=== PATIENT | male | born 1955 | race Asian ===

== ENCOUNTER 2021-01-05 23:24 | Emergency (ER) | payer OTHER ==
[~2021-01-05] VITALS: Ht 177.8 cm; Wt 77.1 kg
[2021-01-05] MEDS ORDERED: LISI5TAB10 PO (23:51)
[2021-01-05] MEDS ORDERED: METFORMIN HYDR850 MG PO (23:52)
[2021-01-05] MEDS ORDERED: GLIP10TA55 PO (23:52)
[2021-01-06 00:29] LABS: PLATELET COUNT 153 K/uL (142-355)
[2021-01-06 00:37] LABS: POTASSIUM 3.6 mmol/L (3.6-5.2)
[2021-01-06 04:02] VITALS: BP 134/68; TEMP 99.9
== END 2021-01-06 03:23 | disposition short-term general hospital (02) ==
LOC: ED 23:33
PROVIDERS: Emergency Medicine Emergency Medical Services
PROC: 2W3CX1Z Immobilization of Right Lower Arm using Splint (ICD-10-PCS; principal; 2021-01-05)
PROC: 2W3MX1Z Immobilization of Left Lower Extremity using Splint (ICD-10-PCS; 2021-01-05)
DX: S02.85XA Fracture of orbit, unspecified, initial encounter for closed fracture (principal); S02.32XA Fracture of orbital floor, left side, initial encounter for closed fracture; S02.40DA Maxillary fracture, left side, initial encounter for closed fracture; S63.091A Other subluxation of right wrist and hand, initial encounter; S80.212A Abrasion, left knee, initial encounter; S50.811A Abrasion of right forearm, initial encounter; S20.412A Abrasion of left back wall of thorax, initial encounter; S20.411A Abrasion of right back wall of thorax, initial encounter; V20.4XXA Motorcycle driver injured in collision with pedestrian or animal in traffic accident, initial encounter; Y92.89 Other specified places as the place of occurrence of the external cause
CPT/HCPCS: 36415; 80053; 81000; 85027; 96360; 96375; 99284; J2270

== ENCOUNTER 2022-08-22 11:33 | Emergency (ER) | payer OTHER ==
[~2022-08-22] VITALS: Ht 177.8 cm; Wt 70.3 kg
[~2022-08-22 11:33] MED LIST: GLIP10TA55 PO; LISI5TAB10 PO; METFORMIN HYDR850 MG PO
[2022-08-22 11:40] VITALS: TEMP 96.6
[2022-08-22 13:00] VITALS: BP 110/66
== END 2022-08-22 13:28 | disposition home or self-care (01) ==
LOC: ED 11:33
DX: M54.59 Other low back pain (principal); M25.551 Pain in right hip; V40.5XXA Car driver injured in collision with pedestrian or animal in traffic accident, initial encounter; Y92.89 Other specified places as the place of occurrence of the external cause
CPT/HCPCS: 96372; 99283; J1885; J2360

== ENCOUNTER 2023-03-21 10:41 | Emergency (ER) | payer OTHER ==
[~2023-03-21] VITALS: Ht 177.8 cm; Wt 71.7 kg
[2023-03-21 10:47] VITALS: BP 122/77; TEMP 98.4
== END 2023-03-21 11:12 | disposition home or self-care (01) ==
LOC: ED 10:41
DX: S40.861A Insect bite (nonvenomous) of right upper arm, initial encounter (principal); W57.XXXA Bitten or stung by nonvenomous insect and other nonvenomous arthropods, initial encounter
CPT/HCPCS: 99281

== ENCOUNTER 2023-06-03 19:05 | Emergency (ER) | payer OTHER ==
[~2023-06-03] VITALS: Ht 177.8 cm; Wt 58.5 kg
[2023-06-03 19:10] VITALS: TEMP 98.5
[2023-06-03 20:27] LABS: PLATELET COUNT 164 K/uL (142-355)
[2023-06-03 20:45] LABS: POTASSIUM 4.3 mmol/L (3.6-5.2)
[2023-06-03 23:15] VITALS: BP 101/70
== END 2023-06-03 23:15 | disposition home or self-care (01) ==
LOC: ED 19:05
PROVIDERS: Family Medicine
DX: R73.9 Hyperglycemia, unspecified (principal)
CPT/HCPCS: 80053; 81002; 85027; 96361; 96366; 96374; 99284; J1815